=== PATIENT | male | born 1995 | race Hispanic/Latino ===

== ENCOUNTER 2017-11-12 02:00 | Emergency (ER) | payer BC ==
--- NOTE | 2017-11-12 08:10 | RAD ---
3 VIEWS NASAL BONES: Date: 11/12/17 COMPARISON: None. HISTORY: Trauma, pain. FINDINGS: Bilateral comminuted nasal bone fractures are noted. Limited assessment of the paranasal sinuses appe ar grossly unremarkable. IMPRESSION: Comminuted bilateral nasal bone fractures. POS: PHILLY
== END 2017-11-12 02:53 | disposition home or self-care (01) ==
LOC: ERS 02:00
DX: S02.2XXA Fracture of nasal bones, initial encounter for closed fracture (principal); J45.909 Unspecified asthma, uncomplicated; Z79.899 Other long term (current) drug therapy; Y04.2XXA Assault by strike against or bumped into by another person, initial encounter
CPT/HCPCS: 70160